=== PATIENT | male | born 2000 | race African-American/Black ===

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

== ENCOUNTER 2018-04-20 10:51 | Emergency (ER) | payer MEDICAID ==
[~2018-04-20] VITALS: Ht 188 cm; Wt 65.0 kg
[2018-04-20] MEDS ORDERED: IBUPROFEN 600MG TABLET PO ONE (13:15)
[2018-04-20 13:48] VITALS: BP 106/67
== END 2018-04-20 14:50 | disposition home or self-care (01) ==
LOC: ER 10:51
DX: M25.531 Pain in right wrist (principal); V89.2XXA Person injured in unspecified motor-vehicle accident, traffic, initial encounter; Y93.9 Activity, unspecified; Y92.410 Unspecified street and highway as the place of occurrence of the external cause
CPT/HCPCS: 73110; 99284; Z7610